=== PATIENT | female | born 1990 | race Caucasian/White ===

== ENCOUNTER 2016-09-21 03:26 | Emergency (ER) | payer BC, MEDICAID ==
[2016-09-21 04:05] LABS: Hematocrit 36.9 % (37.0-47.0); Hemoglobin 12.2 gm/dL (12.5-16.0); Mean Cell Volume 89.1 fl (78-100); Mean Corpuscular Hemoglobin 29.5 pg (27-31); Mean Corpuscular Hgb Conc 33.1 g/dl (32-36); Mean Platelet Volume 10.5 fl (6.0-9.5); Neutrophil % 52.1 % (42-75.0); Platelet Count 208 K/mm3 (150-450); Red Blood Count 4.14 M/mm3 (4.2-5.4); Red Cell Distribution Width 12.5 % (11.5-14.0); White Blood Count 5.7 K/mm3 (4.0-10.5)
--- NOTE | 2016-09-21 04:22 | ERNOTE ---
Medical Problem HPI - General Chief Complaint: General Assessment Time Seen by Provider: 09/21/16 03:46 Source: patient Exam Limitations: no limitations - Immun/Allergies/Home Medications Immunizations: IMMUNIZATION HX Immunizations Up to Date Yes History of Influenza Vaccine Yes Allergies/Adverse Reactions: Allergies erythromycin base [Erythromycin Base] Allergy (Severe, Verified 09/21/16 03:32) azithromycin [From Zithromax] Allergy (Verified 09/21/16 03:32) - History of Present History Narrative: Pt states she was leaving work and began to have chest heaviness. She then had tingling of her fingers and they turned blue. Chest pressure lasted for about 2 hours Timing: resolved prior to arrival Severity: moderate Review of Systems - Review of Systems Constitutional: Present: no symptoms reported EYE: Present: no symptoms reported ENT: Present: no symptoms reported Respiratory: Present: shortness of breath - mild Cardiology: Present: See HPI Gastrointestinal/Abdominal: Absent: nausea, vomiting Genitourinary: Present: no symptoms reported Musculoskeletal: Present: muscle pain Skin: Present: See HPI, change in color - of fingers Neurological: Present: tingling Endocrine: Present: no symptoms reported Hematologic/Lymphatic: Present: no symptoms reported Psych: Present: no symptoms reported - Patient's Past Medical History Patient History - Medical: No pertinent hx Patient History - Cardiac/Respiratory: No pertinent hx Patient History - Cancer: No Hx of Cancer Patient History - Surgical Procedures: T & A Patient History - Other: None - Social History Living Situations: home Smoking Status: Never smoker - Immunizations Immunizations Up to Date: Yes History of Influenza Vaccine: Yes Physical Exam - Physical Exam General Appearance: Present: wd/wn, alert, no apparent distress Ears, Nose, Throat: Present: normal ENT inspection Neck: Present: normal inspection, nontender Respiratory: Present: no respiratory distress, normal breath sounds, chest tenderness - mid to upper sternum Cardiovascular/Chest: Present: regular rate, rhythm, no murmur, normal peripheral pulses Gastrointestinal/Abdominal: Present: normal bowel sounds, nontender, nondistended, soft Back Exam: Present: normal inspection, normal range of motion, no CVA tenderness , no vertebral tenderness Extremity Exam: Present: normal inspection, normal range of motion, no edema Neurological Exam: Present: alert, oriented, normal mood/affect, no motor/ sensory deficits Skin Exam: Present: normal color, warm/dry Lymphatic Exam: Present: no adenopathy ED Progress - Results and Orders Patient's Lab Results:: I have reviewed the patient's lab results. Results and Orders: Laboratory Tests 09/21/16 03:54 WBC 5.7 Hgb 12.2 L Hct 36.9 L Plt Count 208 - Vital Signs Patient's Vital Signs:: I have reviewed the patient's vital signs. Vital Signs: Vital Signs 09/21/16 03:29 Temperature 36.4 C L Pulse Rate 78 Respiratory 20 Rate Blood Pressure 123/70 O2 Sat by Pulse 100 Oximetry - Progress/Reassessment Chief Complaint: General Assessment Departure - Departure Clinical Impression: Chest pain of uncertain etiology Disposition: Home self-care Condition: Good Instructions: Nonspecific Chest Pain, [id number] Additional Instructions: See your regular doctor for further testing if your symptoms return. Return to ER as needed
[2016-09-21 04:27] VITALS: BP 120/76
[2016-09-21 04:30] LABS: Anion Gap 15.5 mmol/L (6.8-13.8); Calcium * 8.7 mg/dL (7.9-10.9); Carbon Dioxide 24.2 mmol/L (24-32.6); Estimated Creat Clear 121.5; Potassium 3.7 mmol/L (3.4-4.6); T4 Free * 1.16 ng/dL (0.76-1.46); TSH * 2.33 uIU/mL (0.358-3.74)
--- OUTSIDE RECORDS SUMMARY | 2016-09-21 05:00 | XMS REPORT | Continuity of Care Document ---
:1990 Demographics Phone Unavailable Preferred Language Unknown Marital Status Unknown Voodoo Affiliation Unknown Race Unknown Ethnic Group Unknown Author Organization [facility] ([facility]) [place] [address] Phone [phone] Care Team Providers Name Role Phone Unavailable Primary Care Provider Unavailable Source Comments This disclosure is being made pursuant to the Care Everywhere program, applicable federal and state laws, and may not contain all informaitonavailable regarding this patient.[facility] ([facility]) Active Allergies and Adverse Reactions Not on File Current Medications Not on file Active Problems Not on file Social History Tobacco Use Types Packs/Day Years Used Date Never Assessed Plan of Care Health Maintenance Due Date Last Done Comments Hepatitis B Vaccine (1 of 3 - Primary Series) 1990 HPV Vaccine (1 of 3 - Female/Unknown 3 Dose Series) 2002 Tdap Vaccine 2002 Cervical Cancer Screening 2009 Lipid Disorder Screening 2009 MMR Vaccine 2009 Td Vaccine 2009 Varicella Vaccine (1 of 2 - Adult - No Evidence of 2009 Immunity) Influenza Vaccine: Seasonal (#1) 02/21/2016 Results from Last 3 Months Not on file
== END 2016-09-21 05:01 | disposition home or self-care (01) ==
LOC: ER 03:26
DX: R07.9 Chest pain, unspecified (principal)

== ENCOUNTER 2017-03-03 21:22 | Emergency (ER) | payer BC, OTHER ==
[2017-03-03] MEDS ORDERED: ASPIRIN 81 MG TAB.CHEW PO ONE (21:31)
[2017-03-03] MEDS ORDERED: LORazepam 2 MG/ML DISP.SYRIN IV ONE (21:31)
--- NOTE | 2017-03-03 21:35 | ERNOTE ---
Chest Pain/Cardiac HPI Date of Service: 03/03/17 Chief Complaint: Chest Pain Time Seen by Provider: 03/03/17 21:26 Source: patient Immunizations: IMMUNIZATION HX Immunizations Up to Date Yes History of Influenza Vaccine Yes Allergies/Adverse Reactions: Allergies erythromycin base [Erythromycin Base] Allergy (Severe, Verified 09/21/16 03:32) azithromycin [From Zithromax] Allergy (Verified 09/21/16 03:32) Penicillins Allergy (Verified 03/03/17 21:34) Home Medications: HOME MEDICATIONS Amitriptyline HCl [Elavil] 10 mg PO HS 03/03/17 [Last Taken Unknown] Narrative: This is a 26-year-old female with a history of anxiety who comes to the emergency department complaining of 1-2 hours of substernal chest tightness. Patient states she was "just walking around" when she started having chest tightness. She denies sensing or having any significant stresses at home. The patient says that retrosternally her chest got really tight and she had trouble taking a deep breath in. She also had severe nausea one episode of vomiting. There is no blood in the emesis. She has not had fever or chills. She has not had cough. She has not had urinary or REC THERAPIST symptoms. No diarrhea or constipation. She says she does have a bit of a headache. The patient has had similar symptoms in the past, most recently in October. She says at that time she was diagnosed with an anxiety attack. She says she took her anxiety medicine earlier this evening. She takes a medicine that I am not aware of and she doesn't know the name of at bedtime. The symptoms do not seem to be changing. Review of Systems - Review of Systems Constitutional: Present: See HPI EYE: Present: no symptoms reported. Absent: eye pain, blurred vision, double vision ENT: Present: no symptoms reported. Absent: ear pain, ear discharge, nose pain , nose congestion, sore throat, throat swelling Respiratory: Present: See HPI, shortness of breath Cardiology: Present: See HPI, chest pain. Absent: palpitations, claudication Gastrointestinal/Abdominal: Present: no symptoms reported Genitourinary: Present: no symptoms reported Musculoskeletal: Present: no symptoms reported Skin: Present: no symptoms reported Neurological: Present: no symptoms reported Endocrine: Present: no symptoms reported Hematologic/Lymphatic: Present: no symptoms reported Psych: Present: no symptoms reported All Other Systems: All systems neg except as marked - Patient's Past Medical History Patient History - Medical: No pertinent hx Patient History - Cardiac/Respiratory: No pertinent hx Patient History - Cancer: No Hx of Cancer Patient History - Surgical Procedures: T & A Patient History - Other: None - Social History Living Situations: home - Immunizations Immunizations Up to Date: Yes History of Influenza Vaccine: Yes Physical Exam - Physical Exam General Appearance: Present: wd/wn, alert, mild distress, other - appears mildly anxious Head Exam: Present: normal inspection, no evidence of injury Eye Exam: Normal inspection: bilateral, PERRL: bilateral, EOMI: bilateral Ears, Nose, Throat: Present: normal ENT inspection, normal pharynx. Absent: tonsillar swelling, dry mucous membranes Neck: Present: normal inspection, nontender. Absent: supple Respiratory: Present: no respiratory distress, normal breath sounds, no accessory muscle use, lungs clear. Absent: chest nontender Cardiovascular/Chest: Present: regular rate, rhythm, no murmur, normal peripheral pulses Gastrointestinal/Abdominal: Present: normal bowel sounds, nontender, nondistended, soft, no organomegaly Back Exam: Present: normal inspection, normal range of motion, no CVA tenderness Extremity Exam: Present: normal inspection, non-tender, no edema Neurological Exam: Present: alert, oriented, normal mood/affect Skin Exam: Present: normal color, warm/dry Lymphatic Exam: Present: no adenopathy ED Progress - Results and Orders Patient's Lab Results:: I have reviewed the patient's lab results. - Vital Signs Patient's Vital Signs:: I have reviewed the patient's vital signs. Vital Signs: Vital Signs 03/03/17 21:27 Temperature 36.9 C Pulse Rate 71 Respiratory 16 Rate Blood Pressure 118/63 O2 Sat by Pulse 100 Oximetry - EKG EKG: NSR EKG read: Interp. by me EKG Comments: Normal axis normal intervals and normal sinus rhythm at 69 year ischemic changes AK interval is borderline shortened at 117 but there is no delta wave to indicate preexcitation syndrome - X-Ray X-Ray #1 X-Ray: chest Interpretation: Interp. by me X-ray Comments: Acute cardiopulmonary disease - Progress/Reassessment Chief Complaint: Chest Pain Progress Note-Subjective: 03/04/17 00:19 The patient has a second troponin which is also undetectable. I feel this essentially eliminates acute coronary syndrome with the reasonable medical certainty. The patient will follow-up with her family doctor. This certainly sounds like an anxiety attack similar to one that she had several months ago. Plan - Plan Plan: The patient has just received her medicine. We were very busy for a time in the emergency department. She says her symptoms are slowly improving. First set of cardiac enzymes is negative. I will use and 90 minute repeat troponin. So long as there is no upward trend up in this patient with low pretest probability this is adequate to eliminate acute coronary syndrome. The patient is aware that this is not catch every single possible case but is within a reasonable medical certainty. Departure - Departure Clinical Impression: Panic attack Disposition: Home self-care Condition: Stable Instructions: Panic Attacks, [id number] Additional Instructions: As we discussed the tests and studies done here in the emergency Department are all normal. This does not mean that you are not having symptoms, only that I have not identified an emergency or life-threatening cause for his symptoms. I suspect her symptoms are coming from a panic attack similar to the one U had before [facility] doctor and set up a follow-up appointment. Certainly if he develop new or worrisome symptoms she should return immediately to the emergency department.
[2017-03-03 21:52] LABS: Hematocrit 34.2 % (37.0-47.0); Hemoglobin 11.3 gm/dL (12.5-16.0); Mean Cell Volume 89.5 fl (78-100); Mean Corpuscular Hemoglobin 29.6 pg (27-31); Mean Platelet Volume 10.8 fl (6.0-9.5); Neutrophil # 1.5 K/mm3 (1.3-6.0); Neutrophil % 37.5 % (42-75.0); Platelet Count 181 K/mm3 (150-450); Red Blood Count 3.82 M/mm3 (4.2-5.4); Red Cell Distribution Width 12.6 % (11.5-14.0)
[2017-03-03 22:12] LABS: Anion Gap 13.2 mmol/L (6.8-13.8); BUN/Creatinine Ratio 20.5 (9.0-21.6); Blood Urea Nitrogen 15 mg/dL (3-23); Calcium * 8.6 mg/dL (7.9-10.9); Carbon Dioxide 26.1 mmol/L (24-32.6); Chloride 108 mmol/L (97-106); Estimated Creat Clear 127.4; Glucose * 96 mg/dL (70-110); Potassium 3.3 mmol/L (3.4-4.6); Sodium 144 mmol/L (132-142); Troponin I Less than 0.017 ng/ml (0.00-0.10)
[2017-03-03 22:12] LABS: Urine Bilirubin Negative (NEGATIVE); Urine Blood 250 /ul (NEGATIVE); Urine Ketone Negative (NEGATIVE); Urine Nitrite Negative (NEGATIVE); Urine Protein Negative (NEGATIVE); Urine Specific Gravity 1.025 SP.GR. (1.005-1.010); Urine Urobilinogen Normal (NORMAL)
[2017-03-03] MEDS ORDERED: ASPIRIN 81 MG TAB.CHEW ONE (22:14)
[2017-03-03] MEDS ORDERED: LORazepam 2 MG/ML DISP.SYRIN ONE (22:15)
[2017-03-03 22:18] LABS: Urine Appearance Clear; Urine Color Pale Yellow
[2017-03-03 22:19] LABS: Urine Bacteria 1+; Urine RBC 25-50 /hpf (0-5); Urine WBC 0-5 /hpf (0-5)
[2017-03-04 01:25] VITALS: BP 121/72
== END 2017-03-04 01:15 | disposition home or self-care (01) ==
LOC: ER 21:22
DX: F41.0 Panic disorder [episodic paroxysmal anxiety] (principal)

== ENCOUNTER 2020-01-02 10:07 | Observation (INO) ==
[2020-01-02 10:15] VITALS: BP 129/76
[2020-01-02] MEDS ORDERED: RINGER'S SOLUTION,LACTATED 1,000 ML IV ONE ×2 (12:11→14:15)
[2020-01-02] MEDS ORDERED: PENICILLIN G POTASSIUM 5 MILLIONUNT in DEXTROSE 5 % IN WATER 100 ML IV ONE ×2 (12:16)
--- NOTE | 2020-01-02 14:52 | HPDIS ---
Chief Complaint - Chief Complaint Date of Service: 01/02/20 Time of Service: 14:43 Chief Complaint: contractions History of Present Illness: 29 year old at 35w 2d who presents to labor and delivery complaining of contractions. She denies vb or lof. Fetus is active. No other complaints Medical History (Last Reviewed 01/02/20 @ 14:45 by Aleta Mcdermott MD) Anemia (Acute) Onset Date: 11/04/13 w/pregnancies-2013 & 2015, 2019 Anxiety (Chronic) History of transient thrombocytopenia (Chronic) gestational History of hemorrhage (Chronic) uterine atony History of delivery (Chronic) due to preeclampsia History of pre-eclampsia (Chronic) ADHD Onset Date: ~2001 Body piercing Onset Date: Unknown GERD (gastroesophageal reflux disease) Onset Date: Unknown Tattoos Onset Date: Unknown Wears glasses Onset Date: Unknown Candidiasis Onset Date: 03/03/15 Chest pain of uncertain etiology (Resolved) Onset Date: Unknown Clavicle fracture Onset Date: ~1994 Foot pain Onset Date: Unknown Hemorrhage (Resolved) Onset Date: 01/10/14 post hemorrhage d/t uterine atony Left lower quadrant pain Onset Date: 03/23/15 Panic attack (Resolved) Onset Date: Unknown Pre-eclampsia (Resolved) Onset Date: Unknown Premature delivery Onset Date: 01/10/14 @ 36 wks Thrombocytopenia Onset Date: 01/07/14 w/ Toe fracture (Resolved) Onset Date: Unknown Uterine atony Onset Date: 01/10/14 Vaginal delivery (Resolved) Onset Date: Unknown Surgical History: Surgical History (Last Reviewed 01/02/20 @ 14:45 by Aleta Mcdermott MD) S/P tonsillectomy and adenoidectomy (Resolved) Onset Date: 1996 [place] teeth extracted (Resolved) Onset Date: 2010 Family History: Family History (Last Reviewed 01/02/20 @ 14:45 by Aleta Mcdermott MD) Mother Arthritis Hypothyroidism Father Celiac disease Grandmother Arthritis GERD (gastroesophageal reflux disease) Grandmother COPD (chronic obstructive pulmonary disease) Diabetes Emphysema of lung Grandfather CVA (cerebral vascular accident) Grandfather Emphysema of lung Grandmother Alzheimers disease CVA (cerebral vascular accident) Social History: (Last Reviewed 01/02/20 @ 14:45 by Aleta Mcdermott MD) Social History: adopted: No halfway: No Marital status: household members: spouse, children number of children: 2 current occupational status: employed current occupation: [employer] current occupational exposures/hazards: No Highest education level completed: some college, no degree Sexually Active: Yes Service: No Tobacco: Smoking Status: Former smoker Alcohol: alcohol intake: former Substance Use: substance use type: does not use Dietary Habits: caffeine: No Exercise: frequency: other Chapis/Shinto: agree to transfusion: Yes Review Of Systems (GEN) - Review of Systems Generalized/Overall Review: Present: No Symptoms Reported EENTM: Present: No Symptoms Reported Respiratory: Present: No Symptoms Reported Cardiac: Present: No Symptoms Reported Abdominal: Present: No Symptoms Reported Genitourinary: Present: Other - contractions Musculoskeletal: Present: No Symptoms Reported Neurological: Present: No Symptoms Reported Skin: Present: No Symptoms Reported Endocrine: Present: No Symptoms Reported Immunizations: IMMUNIZATION HX Immunizations Up to Date Yes History of Influenza Vaccine No Hx Pneumococcal Vaccination No Allergies/Adverse Reactions: Allergies Allergy/AdvReac Type Severity Reaction Status Date / Time erythromycin base Allergy Severe Verified 01/02/20 10:11 [Erythromycin Base] azithromycin [From Zithromax] Allergy Verified 01/02/20 10:11 Penicillins Allergy Hives Verified 01/02/20 10:11 aspirin AdvReac Headache Verified 01/02/20 10:11 sulfamethoxazole AdvReac N/V Verified 01/02/20 10:11 [From Bactrim] trimethoprim [From Bactrim] AdvReac N/V Verified 01/02/20 10:11 Home Medications: HOME MEDICATIONS ferrous sulfate 325 mg (65 mg iron) tablet,delayed release 325 mg PO BID #30 tab 11/05/19 [Last Taken Unknown] sertraline 25 mg tablet 25 mg PO DAILY #90 tab 11/19/19 [Last Taken Unknown] Vits96/Iron Fum/Folic [ S] 1 tab PO DAILY 01/02/20 [Last Taken Unknown] Exam - Exam Vital Signs: Vital Signs - Last Taken Temp 36.9 C 01/02/20 10:13 Pulse 88 01/02/20 10:13 Resp 16 01/02/20 10:13 BP 129/76 01/02/20 10:13 Pulse Ox 99 01/02/20 10:13 Constitutional: Present: Alert, Oriented x3, Cooperative, Well developed, Well nourished, No distress ENT Exam: Present: hearing grossly normal Eye Exam: bilateral eye: normal inspection Neck: Present: normal inspection Back Exam: Present: normal inspection, no CVA tenderness Breasts: Present: Exam deferred Respiratory: Present: lungs clear, normal breath sounds, no respiratory distress Cardiovascular/Chest: Present: regular rate, rhythm Abdomen: Present: Normal bowel sounds, soft, nontender, nondistended /Rectal: Present: Other - 2/50/-5 Extremity: Present: non-tender, no calf tenderness Skin Exam: Present: normal color, warm/dry, no cyanosis Neurologic: Present: alert, normal mood/affect, oriented x 3 Appearance: Present: appropriate appearance, appropriate insight, neat, no memory impairment Eye contact: Present: cooperative, good eye contact, normal speech Thoughts: Present: normal thought pattern Assessment/Plan - Procedures Results: 29 year old at 35w 2d 1. labor: transfer to a higher level of care due to gestational age 2. GBS prophylaxis: has received one dose of PCN - Assessment/Plan (1) labor Problem: Acute Qualifiers: labor trimester: third trimester labor delivery status: with delivery in third trimester Fetus number: single or unspecified fetus Qualified Code(s): O60.14X0 - labor third trimester with delivery third trimester, not applicable or unspecified (2) 35 weeks gestation of Problem: Acute (1) labor Problem: Acute Qualifiers: labor trimester: third trimester labor delivery status: with delivery in third trimester Fetus number: single or unspecified fetus Qualified Code(s): O60.14X0 - labor third trimester with delivery third trimester, not applicable or unspecified (2) 35 weeks gestation of Problem: Acute Date of Discharge:: 01/02/20 Hospital Course: The patient was observed for several hours and made cervical change from 1 cm to 2 cm Procedures Performed: none Discharge Location: [facility] Disposition: Short Term Hospital Inpatient Condition: Good Discharge Activity: Other - bed rest Discharge Diet: Clear Liquids Referrals: Cierra Andersen DO [Primary Care Provider] - Complete Home Medications List: Complete Home Medication List: ferrous sulfate 325 mg (65 mg iron) tablet,delayed release 325 mg PO BID #30 tab 11/05/19 sertraline 25 mg tablet 25 mg PO DAILY #90 tab 11/19/19 Vits96/Iron Fum/Folic [ S] 1 tab PO DAILY 01/02/20
--- NOTE | 2020-01-02 15:57 | PN ---
Progess Note - Interim Date: 01/02/20 Time: 15:56 Narrative: 01/02/20 15:56 Cervix is 2/50/-3 Dose of steroids given per request of transferring facility
[2020-01-02] MEDS ORDERED: BETAMETHASONE ACETATE,SOD PHOS 6 MG/ML VIAL IM ONE (16:00)
[2020-01-02] MEDS ORDERED: PENICILLIN G POTASSIUM 2.5 MILLIONUNT in DEXTROSE 5 % IN WATER 100 ML IV ONE ×2 (16:30)
== END 2020-01-02 17:30 | disposition short-term general hospital (02) ==
LOC: OBCLINIC 10:07 → OB 10:07
PROVIDERS: ADMIT Obstetrics & Gynecology; ATTEND Obstetrics & Gynecology
CPT/HCPCS: 59025; 96365; 96366; G0378

== ENCOUNTER 2020-01-18 15:21 | Inpatient (IN) ==
[2020-01-18 16:26] LABS: Random Urine Total Protein 21.6 mg/dL (0-12)
[2020-01-18 16:35] LABS: Hematocrit 30.1 % (37.0-47.0); Hemoglobin 9.4 gm/dL (12.5-16.0); Mean Cell Volume 90.9 fl (78-100); Mean Corpuscular Hemoglobin 28.4 pg (27-31); Mean Corpuscular Hgb Conc 31.2 g/dl (32-36); Mean Platelet Volume 11.8 fl (8-12.5); Neutrophil # 4.6 K/mm3 (1.3-6.0); Neutrophil % 70.1 % (42-75.0); Platelet Count 173 K/mm3 (150-450); Red Blood Count 3.31 M/mm3 (4.2-5.4); White Blood Count 6.6 K/mm3 (4.0-10.5)
[2020-01-18] MEDS ORDERED: DEXTROSE 5%-LACTATED RINGERS 1,000 ML IV PRN (16:44)
[2020-01-18] MEDS ORDERED: ONDANSETRON 4 MG TAB.RAPDIS PO PRN (16:44)
[2020-01-18] MEDS ORDERED: OXYTOCIN/DEXTROSE 5%-WATER 30 UNITS/500 ML BAG IV ONE (16:44)
[2020-01-18] MEDS ORDERED: LIDOCAINE HCL 50 ML VIAL PERI PRN (16:44)
[2020-01-18 16:49] LABS: Albumin * 2.6 gm/dl (3.4-5.0); Anion Gap 15.3 mmol/L (6.8-13.8); BUN/Creatinine Ratio 25.5 (9.0-21.6); Bilirubin, Total 0.3 mg/dL (0.0-1.1); Ca. Corrected For Albumin 9.5 mg/dL (8.4-10.2); Calcium * 8.7 mg/dL (7.9-10.9); Carbon Dioxide 22.3 mmol/L (24-32.6); Potassium 3.6 mmol/L (3.4-4.6); Total Protein 6.1 gm/dL (6.2-8.2)
[2020-01-18] MEDS ORDERED: PENICILLIN G POTASSIUM 5 MILLIONUNT in DEXTROSE 5 % IN WATER 100 ML IV ONE ×2 (17:00)
[2020-01-18] MEDS: PENICILLIN G POTASSIUM 2.5 MILLIONUNT in DEXTROSE 5 % IN WATER 100 ML IV SCH ×2 (22:23)
[2020-01-19] MEDS: PENICILLIN G POTASSIUM 2.5 MILLIONUNT in DEXTROSE 5 % IN WATER 100 ML IV SCH ×10 (02:18→18:12)
--- NOTE | 2020-01-19 08:58 | HP ---
Chief Complaint - Chief Complaint Date of Service: 01/19/20 Time of Service: 08:27 History of Present Illness: 29 yo at 37 5/7 weeks presents to L&D c/o decreased movement, vaginal pressure, and seeing spots. During evaluation she was noted to have several elevated BPs with Pr/cr ratio of 343. She was adimitted for induction of labor due to preeclampsia. She denies headache, flashes of light, or epigastric pain. This complicated by anemia, anxiety, PTL, h/o PPH, preeclampsia, thrombocytopenia, and kidney stones. RH positive Rubella immune GBS positive Medical History (Last Reviewed 01/19/20 @ 08:38 by Stefan Boyer DO) Anemia (Acute) Onset Date: 11/04/13 w/pregnancies-2013 & 2015, 2019 Anxiety (Chronic) History of transient thrombocytopenia (Chronic) gestational History of hemorrhage (Chronic) uterine atony History of delivery (Chronic) due to preeclampsia History of pre-eclampsia (Chronic) ADHD Onset Date: ~2001 Body piercing Onset Date: Unknown GERD (gastroesophageal reflux disease) Onset Date: Unknown Tattoos Onset Date: Unknown Wears glasses Onset Date: Unknown Candidiasis Onset Date: 03/03/15 Chest pain of uncertain etiology (Resolved) Onset Date: Unknown Clavicle fracture Onset Date: ~1994 Foot pain Onset Date: Unknown Hemorrhage (Resolved) Onset Date: 01/10/14 post hemorrhage d/t uterine atony Left lower quadrant pain Onset Date: 03/23/15 Panic attack (Resolved) Onset Date: Unknown Pre-eclampsia (Resolved) Onset Date: Unknown Premature delivery Onset Date: 01/10/14 @ 36 wks Thrombocytopenia Onset Date: 01/07/14 w/ Toe fracture (Resolved) Onset Date: Unknown Uterine atony Onset Date: 01/10/14 Vaginal delivery (Resolved) Onset Date: Unknown Surgical History: Surgical History (Last Reviewed 01/19/20 @ 08:38 by Stefan Boyer DO) S/P tonsillectomy and adenoidectomy (Resolved) Onset Date: 1996 [place] teeth extracted (Resolved) Onset Date: 2010 Family History: Family History (Last Reviewed 01/19/20 @ 08:39 by Stefan Boyer DO) Mother Arthritis Hypothyroidism Father Celiac disease Grandmother Arthritis GERD (gastroesophageal reflux disease) Grandmother COPD (chronic obstructive pulmonary disease) Diabetes Emphysema of lung Grandfather CVA (cerebral vascular accident) Grandfather Emphysema of lung Grandmother Alzheimers disease CVA (cerebral vascular accident) Social History: (Last Reviewed 01/19/20 @ 08:39 by Stefan Boyer DO) Social History: adopted: No half-way: No Marital status: lives independently: Yes household members: children number of children: 2 caregivers: mother current occupational status: employed current occupation: [employer] current occupational exposures/hazards: No Highest education level completed: some college, no degree Sexually Active: Yes Service: No Tobacco: Smoking Status: Former smoker Alcohol: alcohol intake: former Substance Use: substance use type: does not use Dietary Habits: caffeine: No Exercise: frequency: other Chapis/Yarsani: agree to transfusion: Yes Review Of Systems (GEN) - Review of Systems Generalized/Overall Review: Present: No Symptoms Reported EENTM: Present: No Symptoms Reported Respiratory: Present: No Symptoms Reported Cardiac: Present: No Symptoms Reported Abdominal: Present: Other - contractions, decreased FM Genitourinary: Present: Other - vaginal pressure Musculoskeletal: Present: No Symptoms Reported Neurological: Present: No Symptoms Reported Skin: Present: No Symptoms Reported Endocrine: Present: No Symptoms Reported Immunizations: IMMUNIZATION HX Immunizations Up to Date Yes History of Influenza Vaccine No Hx Pneumococcal Vaccination No Allergies/Adverse Reactions: Allergies Allergy/AdvReac Type Severity Reaction Status Date / Time erythromycin base Allergy Severe Verified 01/18/20 15:34 [Erythromycin Base] azithromycin [From Zithromax] Allergy Verified 01/18/20 15:34 aspirin AdvReac Headache Verified 01/18/20 15:34 sulfamethoxazole AdvReac N/V Verified 01/18/20 15:34 [From Bactrim] trimethoprim [From Bactrim] AdvReac N/V Verified 01/18/20 15:34 Home Medications: HOME MEDICATIONS ferrous sulfate 325 mg (65 mg iron) tablet,delayed release 325 mg PO BID #30 tab 11/05/19 [Last Taken Unknown] sertraline 25 mg tablet 25 mg PO DAILY #90 tab 11/19/19 [Last Taken Unknown] Vits96/Iron Fum/Folic [ S] 1 tab PO DAILY 01/02/20 [Last Taken 01/09/20] Exam - Exam Vital Signs: Vital Signs - Last Taken Temp 36.9 C 01/18/20 15:38 Pulse 87 01/18/20 15:38 Resp 16 01/18/20 15:38 BP 151/76 H 01/18/20 17:18 Pulse Ox 97 01/18/20 15:38 Constitutional: Present: Alert, Oriented x3, Cooperative ENT Exam: Present: hearing grossly normal Breasts: Present: Exam deferred Respiratory: Present: lungs clear, no respiratory distress Cardiovascular/Chest: Present: regular rate, rhythm, no edema Abdomen: Present: soft, nontender, no rebound tenderness /Rectal: Present: Other - Cervix /-3 Extremity: Present: no pedal edema, no calf tenderness Skin Exam: Present: normal color, warm/dry, no cyanosis Lymphatic: Present: no adenopathy Neurologic: Present: alert, normal mood/affect, oriented x 3 Appearance: Present: appropriate appearance, appropriate insight Eye contact: Present: cooperative, good eye contact Thoughts: Present: normal thought pattern, normal mood /affect Diagnostic Studies: Abnormal Lab Results 01/18/20 01/18/20 01/18/20 Range/Units 16:13 16:30 16:30 RBC 3.31 L (4.2-5.4) M/mm3 Hgb 9.4 L (12.5-16.0) gm/dL Hct 30.1 L (37.0-47.0) % MCHC 31.2 L (32-36) g/dl Immature Gran % (Auto) 0.50 H (0.001-0.429) % Lymphocytes # 1.46 L (1.5-3.5) k/mm3 Carbon Dioxide 22.3 L (24-32.6) mmol/L Anion Gap 15.3 H (6.8-13.8) mmol/L Est GFR (Non-Af Amer) 140 H D (60-130) mL/min BUN/Creatinine Ratio 25.5 H (9.0-21.6) ALT 14 L (19-67) U/L Total Protein 6.1 L (6.2-8.2) gm/dL Albumin 2.6 L (3.4-5.0) gm/dl U Random Total Protein 21.6 H (0-12) mg/dL U [place] Prot/Creat Ratio 343 H (0-199) mg/gm Laboratory Results WBC 6.6 K/mm3 (4.0-10.5) 01/18/20 16:30 RBC 3.31 M/mm3 (4.2-5.4) L 01/18/20 16:30 Hgb 9.4 gm/dL (12.5-16.0) L 01/18/20 16:30 Hct 30.1 % (37.0-47.0) L 01/18/20 16:30 MCV 90.9 fl (78-100) 01/18/20 16:30 MCH 28.4 pg (27-31) 01/18/20 16:30 MCHC 31.2 g/dl (32-36) L 01/18/20 16:30 RDW 13.0 % (11.5-14.0) 01/18/20 16:30 Plt Count 173 K/mm3 (150-450) 01/18/20 16:30 MPV 11.8 fl (8-12.5) 01/18/20 16:30 Immature Gran % (Auto) 0.50 % (0.001-0.429) H 01/18/20 16:30 Immature Gran # (Auto) 0.03 K/mm3 (0.000-0.0310) 01/18/20 16:30 Neutrophils % 70.1 % (42-75.0) 01/18/20 16:30 Lymphocytes % 22.2 % (20-51) 01/18/20 16:30 Monocytes % 7.0 % (0.0-9) 01/18/20 16:30 Eosinophils % 0.0 % (0.0-3.0) 01/18/20 16:30 Basophils % 0.2 % (0.0-1.0) 01/18/20 16:30 Nucleated RBC % 0.0 k/mm3 (0-1) 01/18/20 16:30 Neutrophils # 4.6 K/mm3 (1.3-6.0) 01/18/20 16:30 Lymphocytes # 1.46 k/mm3 (1.5-3.5) L 01/18/20 16:30 Monocytes # 0.5 k/mm3 (0.0-1.0) 01/18/20 16:30 Eosinophils # 0.0 k/mm3 (0.0-0.7) 01/18/20 16:30 Absolute Basophils 0.0 k/mm3 (0.0-0.1) 01/18/20 16:30 Sodium 139 mmol/L (132-142) 01/18/20 16:30 Plasma Sodium 139 mmol/L (130-142) 01/18/20 16:30 Potassium 3.6 mmol/L (3.4-4.6) 01/18/20 16:30 Chloride 105 mmol/L (97-106) 01/18/20 16:30 Carbon Dioxide 22.3 mmol/L (24-32.6) L 01/18/20 16:30 Anion Gap 15.3 mmol/L (6.8-13.8) H 01/18/20 16:30 BUN 14 mg/dL (3-23) 01/18/20 16:30 Creatinine 0.55 mg/dL (0.4-1.4) 01/18/20 16:30 Est GFR (Non-Af Amer) 140 mL/min (60-130) H D 01/18/20 16:30 BUN/Creatinine Ratio 25.5 (9.0-21.6) H 01/18/20 16:30 Random Glucose 91 mg/dL (70-110) 01/18/20 16:30 Calcium 8.7 mg/dL (7.9-10.9) 01/18/20 16:30 Calcium Adj for Albumin 9.5 mg/dL (8.4-10.2) 01/18/20 16:30 Total Bilirubin 0.3 mg/dL (0.0-1.1) 01/18/20 16:30 AST 14 U/L (0-48) 01/18/20 16:30 ALT 14 U/L (19-67) L 01/18/20 16:30 Alkaline Phosphatase 127 U/L (50-170) 01/18/20 16:30 Total Protein 6.1 gm/dL (6.2-8.2) L 01/18/20 16:30 Albumin 2.6 gm/dl (3.4-5.0) L 01/18/20 16:30 Ur Random Creatinine 62.9 mg/dL (60-200) 01/18/20 16:13 U Random Total Protein 21.6 mg/dL (0-12) H 01/18/20 16:13 U [place] Prot/Creat Ratio 343 mg/gm (0-199) H 01/18/20 16:13 Blood Type O Positive 01/18/20 16:30 Antibody Screen Negative 01/18/20 16:30 Assessment/Plan - Assessment/Plan (1) Preeclampsia Assessment: Admit for induction of labor. Monitor for s/s of severe features. IV PCN for GBS prophylaxis. Problem: Acute Qualifiers: Trimester: third trimester Qualified Code(s): O14.93 - Unspecified pre- eclampsia, third trimester (2) Anemia Problem: Acute Qualifiers: Anemia type: iron deficiency Iron deficiency anemia type: inadequate dietary iron intake Qualified Code(s): D50.8 - Other iron deficiency anemias (3) Anxiety Problem: Chronic
[2020-01-19] MEDS: RINGER'S SOLUTION,LACTATED 1,000 ML IV ONE ×2 (13:09→18:13)
--- NOTE | 2020-01-19 13:14 | PN ---
Progess Note - Interim Date: 01/19/20 Time: 13:12 Narrative: 01/19/20 13:12 Patient becoming more uncomfortable with contractions Vital signs stable. Pitocin at 10 mu/min. FHT: 130 baseline, reassuring contractions q 2-3 min Cervix: 4/50/-3, AROM-clear Impression: Intrauterine at 37-5/7 weeks induction of labor for preeclampsia. GBS carrier-status post penicillin x5 doses Plan: Continue present plan
[2020-01-19] MEDS ORDERED: NALOXONE HCL 1 MG/1 ML SYRG IV PRN (13:38)
[2020-01-19] MEDS ORDERED: ONDANSETRON HCL/PF 2 MG/ML VIAL IV PRN (13:38)
[2020-01-19] MEDS ORDERED: BUPIVACAINE HCL/0.9 % NACL/PF 250 ML EP PRN (13:38)
[2020-01-19] MEDS ORDERED: fentaNYL CITRATE/PF 50 MCG/ML AMPUL IT SCH (13:45)
--- NOTE | 2020-01-19 14:08 | ANES ---
Anesthesia Pre Procedure Eval Vitals/Labs: Last Vital Signs Temp 36.9 C 01/18/20 15:38 Pulse 87 01/18/20 15:38 Resp 16 01/18/20 15:38 BP 151/76 H 01/18/20 17:18 Pulse Ox 97 01/18/20 15:38 HOME MEDICATIONS ferrous sulfate 325 mg (65 mg iron) tablet,delayed release 325 mg PO BID #30 tab 11/05/19 [Last Taken Unknown] sertraline 25 mg tablet 25 mg PO DAILY #90 tab 11/19/19 [Last Taken Unknown] Vits96/Iron Fum/Folic [ S] 1 tab PO DAILY 01/02/20 [Last Taken 01/09/20] Allergies/Adverse Reactions: Allergies Allergy/AdvReac Type Severity Reaction Status Date / Time erythromycin base Allergy Severe Verified 01/18/20 15:34 [Erythromycin Base] azithromycin [From Zithromax] Allergy Verified 01/18/20 15:34 aspirin AdvReac Headache Verified 01/18/20 15:34 sulfamethoxazole AdvReac N/V Verified 01/18/20 15:34 [From Bactrim] trimethoprim [From Bactrim] AdvReac N/V Verified 01/18/20 15:34 - Planned Procedure Planned Procedure: decreased movement Medication List Reviewed:: Yes Allergies Verified: Yes Medical History (Last Reviewed 01/19/20 @ 14:07 by Chinmay Garcia CRNA) Anemia (Acute) Onset Date: 11/04/13 w/pregnancies-2013 & 2019 Anxiety (Chronic) History of transient thrombocytopenia (Chronic) gestational History of hemorrhage (Chronic) uterine atony History of delivery (Chronic) due to preeclampsia History of pre-eclampsia (Chronic) ADHD Onset Date: ~2001 Body piercing Onset Date: Unknown GERD (gastroesophageal reflux disease) Onset Date: Unknown Tattoos Onset Date: Unknown Wears glasses Onset Date: Unknown Candidiasis Onset Date: 03/03/15 Chest pain of uncertain etiology (Resolved) Onset Date: Unknown Clavicle fracture Onset Date: ~1994 Foot pain Onset Date: Unknown Hemorrhage (Resolved) Onset Date: 01/10/14 post hemorrhage d/t uterine atony Left lower quadrant pain Onset Date: 03/23/15 Panic attack (Resolved) Onset Date: Unknown Pre-eclampsia (Resolved) Onset Date: Unknown Premature delivery Onset Date: 01/10/14 @ 36 wks Thrombocytopenia Onset Date: 01/07/14 w/ Toe fracture (Resolved) Onset Date: Unknown Uterine atony Onset Date: 01/10/14 Vaginal delivery (Resolved) Onset Date: Unknown Surgical History (Last Reviewed 01/19/20 @ 14:08 by Chinmay Garcia CRNA) S/P tonsillectomy and adenoidectomy (Resolved) Onset Date: 1996 [place] teeth extracted (Resolved) Onset Date: 2010 Family History (Last Reviewed 01/19/20 @ 14:08 by Chinmay Garcia CRNA) Mother Arthritis Hypothyroidism Father Celiac disease Grandmother Arthritis GERD (gastroesophageal reflux disease) Grandmother COPD (chronic obstructive pulmonary disease) Diabetes Emphysema of lung Grandfather CVA (cerebral vascular accident) Grandfather Emphysema of lung Grandmother Alzheimers disease CVA (cerebral vascular accident) - Family Anesthesia History Family History:: no untoward family reactions to anesthesia - Airway/Neck/Teeth Within Normal Limits:: Yes Teeth Condition: intact Neck Exam: full range of motion Mallampatti Score: 2 Thyromental (T-M) distance: > 6 cm Mandibulo Hyoid distance: > 3 cm - Respiratory Respiratory Physical: lungs clear Smoking Status: Former smoker Sleep Apnea currently treated: No Sleep Apnea by current assessment: No - Cardiovascular Tolerate Activity: Good Heart Sounds: S1 & S2, Regular - Gastrointestinal NPO since: 0900 - Anesthesia Assessment and Plan ASA Class: PS, II, E Anesthesia Type Plan: Epidural Planned difficult intubation/equipment available: No
--- NOTE | 2020-01-19 14:09 | ANES ---
Post Anesthesia Discharge - Transfer of Care Transfer of Care handoff given to nurse: Yes - Anesthesia Post Op Note Anesthesia Post Op Note: Care transferred to OB RN
--- NOTE | 2020-01-19 14:11 | ANES ---
Post Anesthesia Assessment - Vital Signs Vitals: Last Vital Signs Temp 36.9 C 01/18/20 15:38 Pulse 87 01/18/20 15:38 Resp 16 01/18/20 15:38 BP 151/76 H 01/18/20 17:18 Pulse Ox 97 01/18/20 15:38 Airway Patency: Normal - Mental Status Level Of Consciousness: Awake - Pain Level Pain Score: 2 - N/V Assessment Nausea/Vomiting Presence: None Dehydration:: No
--- NOTE | 2020-01-19 14:15 | ANES ---
Anesthesia Procedure Note Procedure Note: ANESTHESIA PROCEDURE NOTE Date of Procedure: 01/19/2020 Time of procedure: 1350. Performed by: Kulwant Garcia CRNA [employer]ary Shear Worker Helper: None. Preprocedure diagnosis: Active labor. Post procedure diagnosis: Same. Procedure: Insertion of labor epidural. Indications: The patient is a 29-year-old multigravida female in active labor requesting labor epidural for pain management. Findings: See below. Details of the procedure: The patient was placed in a sitting position. Back was prepped with DuraPrep. Patient was then draped in a sterile fashion. Lidocaine 1% was infiltrated to the skin and subcutaneous tissues at the level of the L3 4 interspace. The epidural space was identified using a 18-gauge Tuohy needle with [id number] technique. 20 mcg fentanyl was given intrathecally using a 27 ga. spinal needle. Epidural catheter was inserted without difficulty. Negative test dose was elicited using 5 mL of 1.5% preservative-free lidocaine plus epinephrine 1 200,000. The epidural catheter was then taped and secured in place. EBL: Minimal. Fluids: N/A. Specimen: N/A. Post procedure condition: The patient tolerated the procedure well. No complications were noted. Thank you for this consultation. Sandhu CRNA
[2020-01-19 16:49] LABS: Hematocrit 30.2 % (37.0-47.0); Hemoglobin 9.3 gm/dL (12.5-16.0); Mean Cell Volume 91.8 fl (78-100); Mean Corpuscular Hemoglobin 28.3 pg (27-31); Mean Corpuscular Hgb Conc 30.8 g/dl (32-36); Mean Platelet Volume 11.5 fl (8-12.5); Neutrophil # 6.4 K/mm3 (1.3-6.0); Neutrophil % 79.5 % (42-75.0); Platelet Count 146 K/mm3 (150-450); Red Blood Count 3.29 M/mm3 (4.2-5.4); Red Cell Distribution Width 13.2 % (11.5-14.0); White Blood Count 8.1 K/mm3 (4.0-10.5)
[2020-01-19] MEDS ORDERED: LIDOCAINE HCL 50 ML VIAL ONE (18:52)
[2020-01-19] MEDS ORDERED: ACETAMINOPHEN 500 MG TABLET PO PRN (19:15)
[2020-01-19] MEDS ORDERED: SENNOSIDES 8.6 MG TABLET PO PRN (19:15)
[2020-01-19] MEDS ORDERED: GLYCERIN/WITCH HAZEL LEAF 40 APPL BOX TP PRN (19:15)
[2020-01-19] MEDS ORDERED: BISACODYL 10 MG SUPP.RECT RC PRN (19:15)
[2020-01-19] MEDS ORDERED: BENZOCAINE/MENTHOL 81 SPRAY CAN TP PRN (19:15)
[2020-01-19] MEDS ORDERED: HYDROCORTISONE 30 APPL TUBE TP PRN (19:15)
[2020-01-19] MEDS ORDERED: OXYTOCIN/DEXTROSE 5%-WATER 30 UNITS/500 ML BAG IV ONE (19:15)
--- NOTE | 2020-01-19 19:29 | PN ---
Progess Note - Interim Date: 01/19/20 Time: 19:27 Narrative: 01/19/20 19:27 Spontaneous vaginal delivery of vigorously crying viable female at 1841 on 01/19/2020 with Apgars 9 and 9, weighing 2829 g in LACEY position. Cord clamping delayed approximately 30 seconds Placenta delivered complete, intact, with three vessel cord and large clot on one third of the placenta Estimated blood loss: 300 mL Anesthesia: Epidural for labor and 6 mL of 1% lidocaine plain for vaginal repair Lacerations: 3 cm first-degree vaginal laceration repaired with 3-0 Vicryl Rapide History for MU History for Definition: * The number of deliveries resulting in a live the patient experienced prior to current hospitalization * The previous delivery of live twins or any live multiple gestation is considered one live event. *If primagravida or nulliparous is documented select zero for the number of previous live births. Live Events: Live Events: 2
[2020-01-19] MEDS: IBUPROFEN 800 MG TABLET PO PRN (19:45)
[2020-01-19] MEDS: DOCUSATE SODIUM 100 MG CAPSULE PO SCH (21:27)
[2020-01-19] MEDS: SERTRALINE HCL 50 MG TABLET PO SCH (23:43)
[2020-01-20] MEDS: IBUPROFEN 800 MG TABLET PO PRN ×2 (01:55→10:06)
[2020-01-20] MEDS: oxyCODONE HCL/ACETAMINOPHEN 1 TAB TABLET PO PRN ×4 (04:15→21:49)
[2020-01-20] MEDS: FERROUS SULFATE 325 MG TABLET PO SCH ×2 (10:09→21:50)
[2020-01-20] MEDS: DOCUSATE SODIUM 100 MG CAPSULE PO SCH ×2 (10:09→21:51)
[2020-01-20] MEDS: PRENATAL VITS96/IRON FUM/FOLIC 1 TAB TABLET PO SCH (10:09)
--- NOTE | 2020-01-20 13:15 | PN ---
Subjective - Date and Time Seen Date: 01/20/20 Time: 13:13 Objective - Vitals Vitals: Last Vital Signs Temp 36.8 C 01/20/20 06:38 Pulse 83 01/20/20 06:38 Resp 16 01/20/20 06:38 BP 129/67 01/20/20 06:38 Pulse Ox 98 01/20/20 06:38 Patient denies complaints. Patient specifically denies headache, visual changes, or epigastric pain breast-feeding well. Lochia wnl abdomen - soft, nontender Uterus -firm, at umbilicus - 1 DTR-3/4, no clonus no calf tenderness Impression: day #1 - s/p spontaneous vaginal delivery. Preeclampsia- resolving Plan: Continue routine care. Continue monitoring closely for signs symptoms of severe preeclampsia. - Abnormal Lab Findings Abnormal Lab Findings: Abnormal Lab Results 01/19/20 Range/Units 16:46 RBC 3.29 L (4.2-5.4) M/mm3 Hgb 9.3 L (12.5-16.0) gm/dL Hct 30.2 L (37.0-47.0) % MCHC 30.8 L (32-36) g/dl Plt Count 146 L (150-450) K/mm3 Neutrophils % 79.5 H (42-75.0) % Lymphocytes % 13.8 L (20-51) % Neutrophils # 6.4 H (1.3-6.0) K/mm3 Lymphocytes # 1.11 L (1.5-3.5) k/mm3 Cauti Physician Documentation - Urinary Catheter Management Urethral ([place]) Date of Insertion: 01/18/20 Time of Insertion: 20:20 Date of Removal: 01/19/20 Time of Removal: 18:20 Assessment/Plan - Problems/Diagnosis (1) Preeclampsia Problem: Acute Qualifiers: Trimester: third trimester Qualified Code(s): O14.93 - Unspecified pre- eclampsia, third trimester (2) Anemia Problem: Acute Qualifiers: Anemia type: iron deficiency Iron deficiency anemia type: inadequate dieta ry iron intake Qualified Code(s): D50.8 - Other iron deficiency anemias (3) Anxiety Problem: Chronic
[2020-01-20] MEDS: SERTRALINE HCL 50 MG TABLET PO SCH (21:44)
[2020-01-21] MEDS: oxyCODONE HCL/ACETAMINOPHEN 1 TAB TABLET PO PRN (05:18)
[2020-01-21] MEDS: FERROUS SULFATE 325 MG TABLET PO SCH ×2 (08:54→18:57)
[2020-01-21] MEDS: IBUPROFEN 800 MG TABLET PO PRN (08:54)
[2020-01-21] MEDS: DOCUSATE SODIUM 100 MG CAPSULE PO SCH (08:54)
[2020-01-21] MEDS: PRENATAL VITS96/IRON FUM/FOLIC 1 TAB TABLET PO SCH (08:54)
--- NOTE | 2020-01-21 12:40 | PN ---
Objective - Vitals Vitals: Last Vital Signs Temp 37.1 C 01/21/20 08:05 Pulse 87 01/21/20 08:05 Resp 18 01/21/20 08:05 BP 119/63 01/21/20 08:05 Pulse Ox 98 01/21/20 08:05 Cauti Physician Documentation - Urinary Catheter Management Urethral ([place]) Date of Insertion: 01/18/20 Time of Insertion: 20:20 Date of Removal: 01/19/20 Time of Removal: 18:20 Assessment/Plan - Problems/Diagnosis (1) Preeclampsia Problem: Acute Qualifiers: Trimester: third trimester Qualified Code(s): O14.93 - Unspecified pre- eclampsia, third trimester (2) Anemia Problem: Acute Qualifiers: Anemia type: iron deficiency Iron deficiency anemia type: inadequate dietary iron intake Qualified Code(s): D50.8 - Other iron deficiency anemias (3) Anxiety Problem: Chronic
[2020-01-21 15:34] VITALS: BP 129/73
[2020-01-21] MEDS ORDERED: RINGER'S SOLUTION,LACTATED 1,000 ML IV ONE (15:35)
[2020-01-21] MEDS ORDERED: diphenhydrAMINE HCL 50 MG/ML VIAL IV ONE (15:35)
--- NOTE | 2020-01-21 15:49 | PN ---
Subjective - Date and Time Seen Date: 01/21/20 Time: 15:37 Objective - Vitals Vitals: Last Vital Signs Temp 36.6 C 01/21/20 15:15 Pulse 94 01/21/20 15:15 Resp 18 01/21/20 15:15 BP 129/73 01/21/20 15:15 Pulse Ox 98 01/21/20 15:15 Patient has been complaining of headache since this morning -no relief with Tylenol, caffeine, nonsteroidals, or narcotic. The headache begins in the front of her head and wraps around down to the back of her neck. Denies visual changes, epigastric pain, or edema. Lochia wnl abdomen - soft, nontender Uterus -firm, at umbilicus - 2 DTR-2/4, no clonus. No calf tenderness Impression: day #2 - s/p spontaneous vaginal delivery. Preeclampsia- blood pressures resolving, doubt headache is related to preeclampsia but will give IV migraine protocol. Plan: If headache resolves will discharge to home today. Baby is being evaluated for elevated bilirubin. If baby has to stay we will keep mom an extra day as well to monitor closely. Cauti Physician Documentation - Urinary Catheter Management Urethral ([place]) Date of Insertion: 01/18/20 Time of Insertion: 20:20 Date of Removal: 01/19/20 Time of Removal: 18:20 Assessment/Plan - Problems/Diagnosis (1) Preeclampsia Problem: Acute Qualifiers: Trimester: third trimester Qualified Code(s): O14.93 - Unspecified pre- eclampsia, third trimester (2) Anemia Problem: Acute Qualifiers: Anemia type: iron deficiency Iron deficiency anemia type: inadequate dietary iron intake Qualified Code(s): D50.8 - Other iron deficiency anemias (3) Anxiety Problem: Chronic
[2020-01-21] MEDS: METOCLOPRAMIDE HCL 5 MG/ML VIAL IV PRN ×4 (16:13→17:23)
== END 2020-01-21 21:40 | disposition home or self-care (01) | DRG 807 ==
LOC: OBCLINIC 15:21 → OB 16:35 → MS 01-20 21:24
PROVIDERS: ADMIT Obstetrics & Gynecology; ATTEND Obstetrics & Gynecology
CPT/HCPCS: 36415; 59025; 80053; 82570; 84155; 84156; 85025; 86850; 88307; 88888